=== PATIENT | female | born 1950 | race Caucasian/White ===

== ENCOUNTER 2023-10-06 13:11 | Day surgery (SDC) | payer MEDICARE, BC ==
[~2023-10-06] VITALS: Ht 162.6 cm; Wt 61.4 kg
[2023-10-06 12:45] VITALS: BP 137/92; PULSE 82; RESP 18
[2023-10-06] MEDS ORDERED: OMEP20TA23 PO (14:05)
[2023-10-06] MEDS ORDERED: VALS1TAB76 PO (14:05)
[2023-10-06] MEDS ORDERED: fentaNYL/PF 50MCG/1 ML 2ML syringe ONE (14:25)
[2023-10-06] MEDS ORDERED: midazolam 1 mg/ML 2ml injection ONE (14:25)
[2023-10-06 14:40] VITALS: BP_SYST 45; BP_SYST 84; BP_DIAS 38; BP_DIAS 53; PULSE 82; PULSE 89; RESP 24; RESP 29; O2SAT 95
[2023-10-06 14:42] VITALS: BP 84/53
[2023-10-06 14:50] VITALS: BP_SYST 84; BP_SYST 90; BP_DIAS 47; BP_DIAS 53; PULSE 81; PULSE 89; RESP 24; RESP 26; O2SAT 95
[2023-10-06 15:00] VITALS: BP 106/60; PULSE 77; RESP 25; O2SAT 94
[2023-10-06 15:10] VITALS: BP 114/71; PULSE 72; RESP 17; O2SAT 95
== END 2023-10-06 15:15 | disposition home or self-care (01) ==
LOC: GI LAB 13:11
PROVIDERS: ATTEND Internal Medicine Gastroenterology
DX: R13.10 Dysphagia, unspecified (principal); K22.2 Esophageal obstruction; K29.50 Unspecified chronic gastritis without bleeding; I10 Essential (primary) hypertension; Z79.899 Other long term (current) drug therapy
CPT/HCPCS: 43239; 43450; A4620; J2250; J3010; J7030; Z7512